=== PATIENT | female | born 1995 | race Caucasian/White ===

== ENCOUNTER 2016-12-14 15:48 | Emergency (ER) | payer OTHER ==
[~2016-12-14] VITALS: Ht 160 cm; Wt 50.8 kg
[2016-12-14] MEDS ORDERED: FAMO20TA8 PO (16:06)
[2016-12-14] MEDS ORDERED: LORA1TAB PO (16:06)
--- NOTE | 2016-12-14 16:16 | NUR ---
Dr Giron at the bedside for eval and exam.
[2016-12-14] MEDS ORDERED: MAG HYDROX/AL HYDROX/SIMETH 30 ML LIQUID UDC PO ONE (16:30)
[2016-12-14] MEDS ORDERED: PANTOPRAZOLE SODIUM 40 MG TABLET.DR PO ONE ×2 (16:30→16:45)
[2016-12-14] MEDS ORDERED: LIDOCAINE VISCUS 2% 15 ML UDC MM ONE (16:30)
[2016-12-14] MEDS ORDERED: ONDANSETRON ODT 4 MG TAB.RAPDIS SL ONE (16:30)
[2016-12-14] MEDS ORDERED: MAG HYDROX/AL HYDROX/SIMETH 30 ML LIQUID UDC ONE (16:45)
[2016-12-14] MEDS ORDERED: LIDOCAINE VISCUS 2% 15 ML UDC ONE (16:45)
[2016-12-14] MEDS ORDERED: ONDANSETRON ODT 4 MG TAB.RAPDIS ONE (16:45)
[2016-12-14 16:46] LABS: *URINE HCG, QUAL NEGATIVE (NEGATIVE)
[2016-12-14 16:48] LABS: *BILIRUBIN,URIN NEGATIVE (NEGATIVE); *BLOOD, URINE 2+ (NEGATIVE); *COLOR,URINE YELLOW (YELLOW); *KETONES,URINE 2+ (NEGATIVE); *PROTEIN,URINE NEGATIVE (NEGATIVE); LEUKOCYTE ESTERASE ,URINE NEGATIVE (NEGATIVE); NITRITE, URINE NEGATIVE (NEGATIVE); PH,URINE 6.5 (5.0-8.0); UGLUCOSE NEGATIVE (NEGATIVE)
[2016-12-14 16:54] LABS: *CLARITY,URINE HAZY (CLEAR)
[2016-12-14 16:57] LABS: BACTERIA,URINE MODERATE /HPF (NONE SEEN); MUCUS,URINE MANY /LPF (0-FEW); SQUAMOUS EPITHELIAL CELL,UR MODERATE /HPF (NONE SEEN); WBC,URINE 0-3 /HPF (0-3)
[2016-12-14 17:14] VITALS: BP 118/88
--- NOTE | 2016-12-14 17:15 | NUR ---
Patient discharged to home in stable conditon. Written and verbal after care instructions given. Patient verbalizes understanding of instructions.
== END 2016-12-14 17:15 | disposition home or self-care (01) ==
LOC: ER 15:50
DX: G89.29 Other chronic pain (principal); R10.9 Unspecified abdominal pain; F41.9 Anxiety disorder, unspecified; F32.9 Major depressive disorder, single episode, unspecified
CPT/HCPCS: 84703; A4663; Q0162